=== PATIENT | female | born 1975 | race Hispanic/Latino ===

== ENCOUNTER 2017-03-20 14:14 | Emergency (ER) | payer SELFPAY ==
[~2017-03-20] VITALS: Ht 157.5 cm; Wt 88.5 kg
[2017-03-20] MEDS ORDERED: SODIUM CHLORIDE 0.9% 1000ML 1,000 ML IV STA (14:38)
[2017-03-20] MEDS ORDERED: MORPHINE SULFATE 4 MG/ML SYR IV STA (14:38)
[2017-03-20] MEDS ORDERED: ONDANSETRON HCL INJ 2 MG/ML VIAL IV STA (14:38)
[2017-03-20] MEDS ORDERED: PREDNISONE20 MG PO (15:15)
== END 2017-03-20 16:28 | disposition home or self-care (01) ==
LOC: ER 14:14
DX: J30.2 Other seasonal allergic rhinitis (principal); H92.03 Otalgia, bilateral
CPT/HCPCS: 99282

== ENCOUNTER 2019-10-18 22:12 | Emergency (ER) | payer SELFPAY ==
[~2019-10-18] VITALS: Ht 157.5 cm; Wt 88.5 kg
[~2019-10-18 22:12] MED LIST: PREDNISONE20 MG PO
[2019-10-18 22:31] LABS: BASOPHILS # (AUTO) 0.1 (0.0-0.1); BASOPHILS % 0.7 % (0.0-1.0); EOSINOPHILS # (AUTO) 0.2 (0.0-0.4); EOSINOPHILS % 1.9 % (0.0-6.0); HEMATOCRIT 34.7 % (34.2-44.1); HEMOGLOBIN 10.3 g/dL (12.0-16.0); LYMPHOCYTES # (AUTO) 1.8 (1.0-3.2); LYMPHOCYTES % 21.6 % (18.0-39.1); MEAN CORPUSCULAR HEMOGLOBIN 23.4 pg (28-32); MEAN CORPUSCULAR HGB CONC 29.7 g/dL (31-35); MEAN CORPUSCULAR VOLUME 78.7 fL (81-99); MONOCYTES # (AUTO) 0.5 (0.2-0.8); MONOCYTES % 6.2 % (4.4-11.3); NEUTROPHILS # (AUTO) 5.8 (2.1-6.9); NEUTROPHILS % 69.5 % (38.7-80.0); PLATELET COUNT 255 x10e3/uL (140-360); RED BLOOD COUNT 4.41 x10e6/uL (3.6-5.1); RED CELL DISTRIBUTION WIDTH 17.3 % (11.7-14.4)
--- NOTE | 2019-10-18 22:38 | Emergency Department Note ---
History of Present Illnes History of Present Illness Chief Complaint: Chest Pain History of Present Illness This is a 44 year old female PRESENTS TO ED WITH INTERMITTENT CHEST PAIN AND HTN X2 HRS, PT STATES HAS NOT SEEN PCP IN OVER 8 MONTHS AND HAS NOT BEEN TAKING HTN MEDICATION; STATES ONLY TAKES HER AMLODIPINE WHEN SHE FEELS BAD, STATES TOOK HER LAST ONE TONIGHT 25 MINUTES COMPRESSED GAS TESTER, PT STATES CHEST PAIN RESOLVED AT THIS TIME, BUT WHEN IT WAS THERE IS WAS RIGHT UPPER CHEST AND HER BP WAS VERY HIGH WITH SYS BP ABOUT 200. Historian: Patient, Pull Over/EMS Arrival Mode: [facility] Onset (how long ago): hour(s) (2) Location: RIGHT CHEST Quality: PAIN Radiation: Reports non-radiation Severity: moderate Onset quality: sudden Duration (how long): hour(s) (2) Timing of current episode: unable to specify Progression: resolved Chronicity: recurrent (STATES OCCURS WHEN HER BLOOD PRESSURE GETS HIGH) Context: Denies recent illness, Denies recent surgery, Denies trauma/injury Relieving factors: none Exacerbating factors: none Associated symptoms: Reports denies other symptoms Treatments prior to arrival: other (AMLODIPINE 10 MG 45 MINUTES COMPRESSED GAS TESTER) Past Medical/Family History Physician Review I have reviewed the patient's past medical and family history. Any updates have been documented here. Past Medical History Recent Fever: No Clinical Suspicion of Infectio: No New/Unexplained Change in Ment: No Past Medical History: Hypertension, Anemia Past Surgical History: Cholecysctectomy, Social History Smoking Cessation: Never Smoker Alcohol Use: None Any Illegal Drug Use: No Family History Family history of heart diseas: Yes Other family history HTN,CAD Other Last Tetanus: Unknown Review of Systems Review of Systems Constitutional: Reports no symptoms EENTM: Reports no symptoms Cardiovascular: Reports as per HPI Respiratory: Reports no symptoms Gastrointestinal: Reports no symptoms Genitourinary: Reports no symptoms Musculoskeletal: Reports no symptoms Integumentary: Reports no symptoms Neurological: Reports no symptoms Psychological: Reports no symptoms Endocrine: Reports no symptoms Hematological/Lymphatic: Reports no symptoms Physical Exam Related Data Allergies: Coded Allergies: Penicillins (Verified Allergy, Unknown, Itching, 03/20/17) Triage Vital Signs Vital Signs Date Time Temp Pulse Resp B/P (MAP) Pulse Ox O2 Delivery O2 Flow Rate FiO2 10/18/19 22:15 99.1 84 16 156/103 100 Room Air Vital signs reviewed: Yes Physical Exam CONSTITUTIONAL Constitutional: Present well-developed, Present well-nourished; Absent distressed HENT HENT: Present normocephalic, Present atraumatic, Present oropharynx clear/moist, Present nose normal HENT L/R: Present left ext ear normal, Present right ext ear normal EYES Eyes: Reports PERRL, Reports conjunctivae normal NECK Neck: Present ROM normal PULMONARY Pulmonary: Present effort normal, Present breath sounds normal CARDIOVASCULAR Cardiovascular: Present regular rhythm, Present heart sounds normal, Present capillary refill normal, Present normal rate GASTROINTESTINAL Abdominal: Present soft, Present nontender, Present bowel sounds normal GENITOURINARY Genitourinary: Present exam deferred SKIN Skin: Present warm, Present dry MUSCULOSKELETAL Musculoskeletal: Present ROM normal NEUROLOGICAL Neurological: Present alert, Present oriented x 3, Present no gross motor or sensory deficits PSYCHOLOGICAL Psychological: Present mood/affect normal, Present judgement normal Results Laboratory Laboratory Laboratory Tests Test 10/19/19 00:25 10/18/19 22:23 Creatine Kinase 110 IU/L (29-168) 118 IU/L (29-168) Creatine Kinase MB 0.90 ng/mL (0-5.0) 0.90 ng/mL (0-5.0) Troponin I 0.059 ng/mL (0-0.300) 0.052 ng/mL (0-0.300) White Blood Count 8.37 x10e3/uL (4.8-10.8) Red Blood Count 4.41 x10e6/uL (3.6-5.1) Hemoglobin 10.3 g/dL (12.0-16.0) Hematocrit 34.7 % (34.2-44.1) Mean Corpuscular Volume 78.7 fL (81-99) Mean Corpuscular Hemoglobin 23.4 pg (28-32) Mean Corpuscular Hemoglobin Concent 29.7 g/dL (31-35) Red Cell Distribution Width 17.3 % (11.7-14.4) Platelet Count 255 x10e3/uL (140-360) Neutrophils (%) (Auto) 69.5 % (38.7-80.0) Lymphocytes (%) (Auto) 21.6 % (18.0-39.1) Monocytes (%) (Auto) 6.2 % (4.4-11.3) Eosinophils (%) (Auto) 1.9 % (0.0-6.0) Basophils (%) (Auto) 0.7 % (0.0-1.0) Neutrophils # (Auto) 5.8 (2.1-6.9) Lymphocytes # (Auto) 1.8 (1.0-3.2) Monocytes # (Auto) 0.5 (0.2-0.8) Eosinophils # (Auto) 0.2 (0.0-0.4) Basophils # (Auto) 0.1 (0.0-0.1) Absolute Immature Granulocyte (auto 0.01 x10e3/uL (0-0.1) Sodium Level 140 mmol/L (136-145) Potassium Level 3.6 mmol/L (3.5-5.1) Chloride Level 106 mmol/L (98-107) Carbon Dioxide Level 22 mmol/L (22-29) Anion Gap 15.6 mmol/L (8-16) Blood Urea Nitrogen 10 mg/dL (7-26) Creatinine 0.85 mg/dL (0.57-1.11) Estimat Glomerular Filtration Rate > 60 ML/MIN (60-) BUN/Creatinine Ratio 12 (6-25) Glucose Level 96 mg/dL (74-118) Calcium Level 9.4 mg/dL (8.4-10.2) Total Bilirubin 0.4 mg/dL (0.2-1.2) Aspartate Amino Transf (AST/SGOT) 28 IU/L (5-34) Alanine Aminotransferase (ALT/SGPT) 32 IU/L (0-55) Alkaline Phosphatase 111 IU/L (40-150) Total Protein 8.1 g/dL (6.5-8.1) Albumin 4.1 g/dL (3.5-5.0) Globulin 4.0 g/dL (2.3-3.5) Albumin/Globulin Ratio 1.0 (0.8-2.0) Laboratory Tests Test 10/18/19 22:23 Lab results reviewed: Yes Imaging Imaging results reviewed: Yes Procedures 12 Lead ECG Interpretation ECG Interpretation : ECG: ECG 1 Pricing Coordinator: Interpreted by ED physician Date: Oct 18, 2019 Time: 22:24 Rhythm: sinus rhythm Rate: normal BPM: 81 QRS axis: normal ST segments normal: Yes T waves normal: Yes Q waves: III, V1, V2 Clinical Impression: abnormal ECG Assessment & Plan Medical Decision Making MDM PT WITH C/O CHEST PAIN AND ELEVATED BLOOD PRESSURE CBC, CMP, EKG, CARDIAC ENZYMES, CXR ORDERED TO EVAL FOR MYOCARDIAL INFARCTION, RENAL INSUFFICIENCY, ELECTROLYTE ABNORMALITY, PNEUMONIA, PNEUMOTHORAX. pt discharged with prescription for amlodipine 10 mg one po daily, i provided a good rx coupon to pt as well for the prescription Assessment & Plan Final Impression: (1) HTN (hypertension) (2) Chest pain Depart Disposition: HOME, SELF-CARE Last Vital Signs Date Time Temp Pulse Resp B/P (MAP) Pulse Ox O2 Delivery O2 Flow Rate FiO2 10/18/19 22:15 99.1 84 16 156/103 100 Room Air Home Meds Active Scripts Prednisone (PREDNISONE) 20 Mg Tab, 40 MG PO DAILY for 5 Days, #10 TAB Prov:KISHAN ROCHA NP 03/20/17 KISHAN ROMERO MD Oct 18, 2019 22:38
[2019-10-18 22:50] LABS: ALANINE AMINOTRANSFERASE 32 IU/L (0-55); ALBUMIN 4.1 g/dL (3.5-5.0); ALKALINE PHOSPHATASE 111 IU/L (40-150); ANION GAP 15.6 mmol/L (8-16); BLOOD UREA NITROGEN 10 mg/dL (7-26); BUN/CREATININE RATIO 12 (6-25); CALCIUM 9.4 mg/dL (8.4-10.2); CARBON DIOXIDE 22 mmol/L (22-29); CHLORIDE 106 mmol/L (98-107); CREATINE KINASE 118 IU/L (29-168); CREATININE, SERUM 0.85 mg/dL (0.57-1.11); EST GLOMERULAR FILTRATION RATE > 60 ML/MIN (60-); GLUCOSE 96 mg/dL (74-118); POTASSIUM 3.6 mmol/L (3.5-5.1); SODIUM 140 mmol/L (136-145)
--- OUTSIDE RECORDS SUMMARY | 2019-10-18 22:56 | XMS REPORT | Continuity of Care Document ---
Author Author [facility] t Organization [facility] Address [address] [place] [address] Phone Unavailable Care Team Providers Care Director Project Management Name Role Phone Lei Calvo MD PCP Problems Condition Name Condition Details Condition Category Status Onset Date Resolution Date Last Treatment Date Treating Clinician Comments Source Tongue lesion Tongue lesion Disease Active 2017-08-22 00:00:00 [facility] RAGHU (iron deficiency anemia) RAGHU (iron deficiency anemia) Disease Active 2014-04-13 00:00:00 [facility]alth HTN (hypertension) HTN (hypertension) Disease Active 2014-04-13 00:00:0 0 [facility] Depression Depression Disease Active 2014-04-13 00:00:00 [facility] Allergic to IV contrast Allergic to IV contrast Disease Active [facility] Anemia Anemia Disease Active [facility] alth Allergies, Adverse Reactions, Alerts Allergy Name Allergy Type Status Severity Reaction(s) Onset Date Inacti ve Date Treating Clinician Comments Source Gadolinium-Containing Contrast Media Propensity to adverse r eactions to drug Active Hives 2017-08-22 00:00:00 [facility] Penicillins Propensity to adverse reactions to drug Active Itching 2017-08-21 00:00:00 [facility] Family History Family Member Diagnosis Comments Start Date Stop Date Source Natural brother Psychiatry [facility] Natural father Diabetes [facility] Natural father Heart [facility] Natural mother [facility] Natural son Asthma [facility] Social History Social Habit Start Date Stop Date Quantity Comments Source Sex Assigned At [facility] Alcohol intake 2017-10-13 00:00:00 2017-10-13 00:00:00 Current drinker of alcohol (finding) [facility] Alcohol Comment 2017-09-09 00:00:00 2017-09-09 00:00:00 ocassion ally once a month on weekends ( beers) [facility] Smoking Status Start Date Stop Date Source Never smoker [facility] Medications Ordered Medication Name Filled Medication Name Start Date Stop Da te Current Medication? Ordering Clinician Indication Dosage Frequency Signature (SIG) Comments Components Source amLODIPine (NORVASC) 10 mg tablet 2018-07-03 00:00:00 Yes Essential hypertension 10mg QD Take 1 tablet by mouth daily. [facility] Immunizations Ordered Immunization Name Filled Immunization Name Date Status Comments Source Influenza Vaccine 2014-04-13 00:00:00 Completed [facility] Tdap Tetanus, diphtheria, acellular pertussis Vaccine 2013-09-13 00:00:00 Completed [facility] Procedures This patient has no known procedures. Plan of Care Planned Activity Planned Date Details Comments Source Future Scheduled Test 2016-09-13 00:00:00 Screening for weston gnant neoplasm of cervix (procedure) [code = 788412037] [facility] Future Scheduled Test 2013 00:00:00 Breast Cancer Scrn (Yearly) [code = Breast Cancer Scrn (Yearly)] [facility] Encounters Start Date/Time End Date/Time Encounter Type Admission Type Attendi [facility] Care Department Encounter ID Source 2018-03-29 00:00:00 2018-03-29 00:00:00 Outpatient [facility] [id number] [facility] 2018-01-27 11:21:34 2018-01-27 11:21:34 Outpatient [facility] [id number] [facility] 2017-11-30 00:00:00 2017-11-30 00:00:00 Outpatient [facility] [id number] [facility] 2017-11-30 00:00:00 2017-11-30 00:00:00 Outpatient [facility] [id number] [facility] 2017-11-23 00:00:00 2017-11-23 00:00:00 Outpatient [facility] [id number] [facility] 2017-10-20 00:00:00 2017-10-20 00:00:00 Outpatient [facility] [id number] [facility] 2017-10-20 00:00:00 2017-10-20 00:00:00 Outpatient [facility] [id number] [facility] 2017-10-13 10:02:23 2017-10-13 10:02:23 Outpatient [facility] [id number] [facility] 2017-10-13 00:00:00 2017-10-13 00:00:00 Outpatient [facility] [id number] [facility] 2017-09-21 10:22:38 2017-09-21 10:22:38 Outpatient [facility] [id number] [facility] 2017-09-21 00:00:00 2017-09-21 00:00:00 Outpatient [facility] [id number] [facility] 2017-09-18 00:00:00 2017-09-18 00:00:00 Outpatient [facility] [id number] [facility] 2017-09-09 08:15:00 2017-09-09 08:15:00 Outpatient [facility] [id number] [facility] 2017-09-09 00:00:00 2017-09-09 00:00:00 Outpatient [facility] [id number] [facility] 2017-09-04 13:59:29 2017-09-04 13:59:29 Outpatient [facility] [id number] [facility] 2017-09-04 12:36:39 2017-09-04 12:36:39 Outpatient [facility] [id number] [facility] 2017-09-04 00:00:00 2017-09-04 00:00:00 Outpatient [facility] [id number] [facility] 2017-08-31 12:50:42 2017-08-31 12:50:42 Outpatient [facility] [id number] [facility] 2017-08-22 05:46:17 2017-08-22 05:46:17 Emergency [facility] [id number] [facility] 2017-08-22 03:56:53 2017-08-22 03:56:53 Emergency [facility] [id number] [facility] Results This patient has no known results.
--- OUTSIDE RECORDS SUMMARY | 2019-10-18 22:56 | XMS REPORT | Clinical Summary ---
Author Author [facility] Organization [facility] Address Unknown Phone Unavailable Care Team Providers Care Bone Plant Supervisor Name Role Phone Laura Calvo MD PCP Pcp, No PCP Unavailable Allergies Comments Active Allergy Reactions Severity Noted Date Gadolinium-Containing Hives 08/22/2017 Contrast Media Penicillins Itching 08/21/2017 Medications End Date Status Medication Sig Dispensed Refills Start Date Active amLODIPine (NORVASC) 10 Take 1 tablet 90 tablet 1 07/03/201 mg tabletIndications: by mouth 9 Essential hypertension daily. Active Problems Problem Noted Date Tongue lesion 08/22/2017 RAGHU (iron deficiency anemia) 04/13/2014 HTN (hypertension) 04/13/2014 Depression 04/13/2014 Allergic to IV contrast Anemia Immunizations Name Administration Dates Next Due Influenza Vaccine 04/13/2014 Tdap Tetanus, diphtheria, 09/13/2013 acellular pertussis Vaccine Family History Medical History Relation Name Comments Psychiatry Brother Diabetes Father Heart Father Asthma Mother Asthma Son Relation Name Status Comments Brother Alive Brother Alive Brother Daughter Alive Father Alive Maternal Grandfather Alive Maternal Grandmother Alive Mother Alive Paternal Grandfather Alive Paternal Grandmother Alive Sister Alive Sister Alive Son Alive Son Alive Son Social History Date Tobacco Use Types Packs/Day Years Used Never Smoker Smokeless Tobacco: Never Used Drinks/Week oz/Week Comments Alcohol Use ocassionally once a month on weekends ( beers) Yes Sex Assigned at Date Recorded Not on file Industry Job Start Date Occupation Not on file Not on file Not on file Travel End Travel History Travel Start No recent travel history available. Last Filed Vital Signs Not on file Plan of Treatment Health Maintenance Due Date Last Done Comments Breast Cancer Scrn 2013 (Yearly) Cervical Cancer Scrn (3 09/13/2016 09/13/2013 Yrs) Results Not on fileafter 10/17/2018
--- NOTE | 2019-10-18 23:00 | NUR ---
pt counselled on importance of taking bp medication as directed. pt states that has only been taking bp meds "when feels bad." pt states that will be compliant with rx from now on. pt also instructed on following up as outpatient related to bp.
[2019-10-19 01:00] LABS: CREATINE KINASE MB 0.9 ng/mL (0-5.0)
[2019-10-19 01:18] VITALS: BP 132/67
--- NOTE | 2019-10-19 01:49 | Diagnostic Imaging Report ---
EXAMINATION: CHEST SINGLE (PORTABLE) INDICATION: Chest pain COMPARISON: None FINDINGS: TUBES and LINES: None. LUNGS: Normal lung volumes. Lungs are clear. No consolidations. PLEURA: No pleural effusion or pneumothorax. HEART AND MEDIASTINUM: The cardiomediastinal silhouette is unremarkable. BONES AND SOFT TISSUES: No acute osseous lesion. Soft tissues are unremarkable. UPPER ABDOMEN: No free air under the diaphragm. IMPRESSION: No acute thoracic radiographic abnormality. Signed by: Tushar Barrera DO on 10/19/2019 1:46 AM
== END 2019-10-19 01:33 | disposition home or self-care (01) ==
LOC: ER 22:18
DX: R07.9 Chest pain, unspecified (principal); I10 Essential (primary) hypertension; D64.9 Anemia, unspecified
CPT/HCPCS: 36415; 71045; 80053; 82550; 82553; 84484; 85025; 93005; 99284